=== PATIENT | male | born 1950 | race Hispanic/Latino ===

== ENCOUNTER 2023-11-17 18:05 | Emergency (ER) | payer OTHER ==
[2023-11-17 18:58] LABS: #Eosinphils 0.2 10x3/uL (0.0-0.5); #Monocytes 0.4 10x3/uL (0.0-1.1); #Neutrophils 2.5 10x3/uL (1.5-8.4); %Lymphocytes 22.3 % (18.0-47.0); %Monocytes 9.7 % (0.0-10.0); %Neutrophils 62.5 % (40.0-75.0); Hematocrit 37.1 % (38.8-50.0); Hemoglobin 13.7 g/dL (13.5-17.5); Mean Corpuscular HGB CONC 36.9 g/dL (32.0-36.0); Mean Corpuscular Hemoglobin 29.8 pg (27.0-33.0); Mean Corpuscular Volume 80.7 fl (81.2-95.1); Platelet Count 202 10x3/uL (150-450); RBC Distribution Width 12.2 % (11.5-14.5)
[2023-11-17 19:05] LABS: ALT (SGPT) 16 U/L (8-55); AST (SGOT) 14 U/L (5-34); Alkaline Phosphatase 146 U/L (40-110); Anion Gap 12 mmol/L (10-20); BUN (Urea Nitrogen) 17 mg/dL (8.4-25.7); Calc. Creatinine Clearance 0 mL/min (70-130); Calcium 8.6 mg/dL (7.8-10.44); Carbon Dioxide 20 mmol/L (23-31); Chloride 102 mmol/L (98-107); Estimated GFR 73; Globulin 2.8 g/dL (2.4-3.5); Protein, Total 6.8 g/dL (5.8-8.1); Sodium 130 mmol/L (136-145)
[2023-11-17 19:06] LABS: Glucose 561 mg/dL (83-110)
[2023-11-17] MEDS ORDERED: Insulin Regular 300 UNITS/3 ML VIAL ONE (19:40)
[2023-11-17] MEDS ORDERED: Insulin Regular 300 UNITS/3 ML VIAL IVP SCH (19:45)
== END 2023-11-17 20:40 ==
LOC: CSHERS 18:05
DX: E11.65 Type 2 diabetes mellitus with hyperglycemia (principal)
CPT/HCPCS: 36415; 36416; 80053; 82010; 85025; 96361; 96374; J1815

== ENCOUNTER 2025-04-30 20:23 | Inpatient (IN) | payer OTHER ==
[~2025-04-30 20:23] MED LIST: Iopamidol 300 61% 100 ML VIAL FS ONE
[2025-04-30 20:40] LABS: #Basophils 0.03 10x3/uL (0.0-0.2); #Eosinophils Less than 0.03 10x3/uL (0.0-0.5); #Monocytes 0.30 10x3/uL (0.0-1.1); #Neutrophils 6.19 10x3/uL (1.5-8.4); %Basophils 0.4 % (0.0-2.0); %Eosinophils 0.1 % (0.0-6.0); %Lymphocytes 7.4 % (18.0-47.0); %Monocytes 4.2 % (0.0-10.0); %Neutrophils 86.9 % (40.0-75.0); Hematocrit 26.8 % (38.8-50.0); Hemoglobin 9.6 g/dL (13.5-17.5); Mean Corpuscular Hemoglobin 30.9 pg (27.0-33.0); Mean Corpuscular Volume 86.2 fL (81.2-95.1); Platelet Count 347 10x3/uL (150-450); Red Blood Cell (RBC) Count 3.11 10x6/uL (4.32-5.72); White Blood Cell (WBC) Count 7.13 10x3/uL (3.5-10.5)
[2025-04-30 20:59] LABS: ALT (SGPT) 10 U/L (Less than 45); AST (SGOT) 21 U/L (11-34); Albumin 1.5 g/dL (3.1-4.5); Alkaline Phosphatase 95 U/L (40-110); Anion Gap 14 mmol/L (10-20); BUN (Urea Nitrogen) 26 mg/dL (8.4-25.7); Bilirubin, Total 0.3 mg/dL (0.3-1.2); Calc. Creatinine Clearance 0 mL/min (70-130); Calcium 7.1 mg/dL (7.8-10.44); Carbon Dioxide 20 mmol/L (23-31); Chloride 98 mmol/L (98-107); Globulin 3.8 g/dL (2.4-3.5); Glucose 384 mg/dL (83-110); Potassium 4.1 mmol/L (3.5-5.1); Sodium 128 mmol/L (136-145)
[2025-04-30 21:02] LABS: INR-International Normal Ratio 1.1; PTT 30.8 sec (22.0-33.0); Prothrombin Time 12.0 sec (9.5-12.1)
[2025-04-30 23:55] LABS: Glucose, Urine (Dipstick) >=1000 mg/dL (Negative); Leukocyte Negative (Negative); Protein, Urine (Dipstick) 15 mg/dl (Neg-Trace); Specific Gravity, Urine 1.020 (1.005-1.030)
[2025-05-01 00:02] LABS: Bacteria/HPF None Seen HPF (None Seen); CAUTI Indications for Culture Pelvic or flank pain; RBC/HPF 0-3 HPF (0-3); WBC/HPF 0-3 HPF (0-3)
[2025-05-01 00:03] LABS: Urine Culture Reflex No No
[2025-05-01] MEDS ORDERED: Cefepime 2 GM VIAL ONE (01:54)
[2025-05-01] MEDS ORDERED: Milk Of Magnesia 30 ML UDCUP PO PRN (04:14)
[2025-05-01] MEDS ORDERED: Calcium Carbonate 500 MG ChewTAB PO PRN (04:15)
[2025-05-01] MEDS ORDERED: Dextrose 50% Abboject 50 ML SYRINGE SLOW IVP PRN (04:28)
[2025-05-01] MEDS ORDERED: Glucagon 1 MG/ML KIT IM PRN (04:28)
[2025-05-01] MEDS: CALCIUM GLUC 1 GM/NS 50 ML 1 GM in Premix 1 BAG IVPB SCH (04:50)
[2025-05-01] MEDS: VANCOMYCIN 2 GRAM/400 ML BAG 2 GM in Premix 1 BAG IVPB SCH (05:01)
[2025-05-01 05:04] VITALS: BMI 28.3
[2025-05-01] MEDS: Levothyroxine 150 MCG TAB PO SCH (06:16)
[2025-05-01] MEDS: Bisacodyl 10 MG SUPP PR SCH (08:39)
[2025-05-01] MEDS: Thiamine 100 MG TAB PO SCH (08:49)
[2025-05-01] MEDS: Calcium Carbonate 600 MG + Vit D TAB PO SCH (08:49)
[2025-05-01] MEDS: Aspirin 81 mg Enteric Coated Tablet PO SCH (08:49)
[2025-05-01] MEDS: Senokot S 8.6-50 MG TAB PO SCH (08:49)
[2025-05-01] MEDS: Folic Acid 1 MG TAB PO SCH (08:49)
[2025-05-01] MEDS: Pantoprazole 40 MG DR.TAB PO SCH (08:49)
[2025-05-01] MEDS: Multivit, Therapeutic 1 TAB PO SCH (08:50)
[2025-05-01] MEDS: glipiZIDE 5 MG TAB PO SCH (08:50)
[2025-05-01] MEDS: Enoxaparin 40 MG (0.4 mL) SYRINGE SC SCH (08:51)
[2025-05-01] MEDS: Cyanocobalamin (Vitamin B-12) 1,000 MCG TAB PO SCH (08:54)
[2025-05-01 09:34] LABS: Anion Gap 15 mmol/L (10-20); BUN (Urea Nitrogen) 26 mg/dL (8.4-25.7); Calc. Creatinine Clearance 76 mL/min (70-130); Calcium 7.6 mg/dL (7.8-10.44); Carbon Dioxide 18 mmol/L (23-31); Chloride 102 mmol/L (98-107); Glucose 250 mg/dL (83-110); Magnesium 2.2 mg/dL (1.6-2.6); Potassium 4.3 mmol/L (3.5-5.1); Sodium 131 mmol/L (136-145)
[2025-05-01] MEDS: Nystatin Powder 15 GM BOT TOP SCH (09:48)
[2025-05-01] MEDS: Chlorhexidine Gluconate 15 ML UDCUP SSP SCH (09:49)
[2025-05-01] MEDS: Ibuprofen 200 MG TAB PO PRN (11:41)
[2025-05-01] MEDS: Acetaminophen 325 MG TAB PO PRN (11:42)
[2025-05-01 12:05] LABS: RBC Morphology Within Normal Limits
[2025-05-01 12:08] LABS: Hematocrit 32.9 % (38.8-50.0); Hemoglobin 11.3 g/dL (13.5-17.5); MDiff Complete? YES; Mean Corpuscular Hemoglobin 30.3 pg (27.0-33.0); Mean Corpuscular Volume 88.2 fL (81.2-95.1); Platelet Adequacy Comment Appears Adequate; Platelet Count 438 10x3/uL (150-450); Red Blood Cell (RBC) Count 3.73 10x6/uL (4.32-5.72); White Blood Cell (WBC) Count 8.33 10x3/uL (3.5-10.5)
[2025-05-01 14:47] VITALS: BMI 28.3
[2025-05-01] MEDS: Vancomycin 1.5 GRAM/300 ML BAG 1.5 GM in Premix 1 BAG IVPB SCH (20:24)
[2025-05-01] MEDS: Cholecalciferol 1,000 UNITS (25 MCG) TAB PO SCH (20:26)
[2025-05-02 05:44] LABS: Hematocrit 27.9 % (38.8-50.0); Hemoglobin 9.3 g/dL (13.5-17.5); Mean Corpuscular Hemoglobin 29.3 pg (27.0-33.0); Mean Corpuscular Volume 88.0 fL (81.2-95.1); Platelet Count 338 10x3/uL (150-450); Red Blood Cell (RBC) Count 3.17 10x6/uL (4.32-5.72); White Blood Cell (WBC) Count 5.91 10x3/uL (3.5-10.5)
[2025-05-02 05:46] LABS: MDiff Complete? YES; Platelet Adequacy Comment Appears Adequate; RBC Morphology Within Normal Limits
[2025-05-02 05:50] LABS: Vancomycin, Random 21.7 ug/mL (See Comment)
[2025-05-02 05:55] LABS: ALT (SGPT) 11 U/L (Less than 45); AST (SGOT) 16 U/L (11-34); Albumin 1.4 g/dL (3.1-4.5); Alkaline Phosphatase 97 U/L (40-110); Anion Gap 11 mmol/L (10-20); BUN (Urea Nitrogen) 35 mg/dL (8.4-25.7); Bilirubin, Total 0.3 mg/dL (0.3-1.2); Calc. Creatinine Clearance 63 mL/min (70-130); Carbon Dioxide 19 mmol/L (23-31); Chloride 102 mmol/L (98-107); Globulin 3.5 g/dL (2.4-3.5); Magnesium 2.2 mg/dL (1.6-2.6); Potassium 4.2 mmol/L (3.5-5.1); Sodium 128 mmol/L (136-145)
[2025-05-02 06:04] LABS: Calcium 6.7 mg/dL (7.8-10.44); Glucose 402 mg/dL (83-110)
[2025-05-02] MEDS: metFORMIN 500 MG TAB PO SCH (08:44)
[2025-05-02] MEDS: VANCOMYCIN 1.25 GM/250 ML BAG 1.25 GM in Premix 1 BAG IVPB SCH (21:28)
[2025-05-02] MEDS: Pantoprazole 40 MG VIAL IVP SCH (22:19)
[2025-05-02] MEDS: Ondansetron PF 4 MG/2 ML Vial IVP PRN (22:19)
[2025-05-03 06:29] LABS: Anion Gap 14 mmol/L (10-20); BUN (Urea Nitrogen) 41 mg/dL (8.4-25.7); Calc. Creatinine Clearance 65 mL/min (70-130); Calcium 7.1 mg/dL (7.8-10.44); Carbon Dioxide 16 mmol/L (23-31); Chloride 104 mmol/L (98-107); Glucose 233 mg/dL (83-110); Potassium 4.2 mmol/L (3.5-5.1); Sodium 130 mmol/L (136-145)
[2025-05-04 06:18] LABS: #Basophils 0.03 10x3/uL (0.0-0.2); #Eosinophils 0.13 10x3/uL (0.0-0.5); #Monocytes 0.36 10x3/uL (0.0-1.1); #Neutrophils 6.84 10x3/uL (1.5-8.4); %Basophils 0.4 % (0.0-2.0); %Eosinophils 1.6 % (0.0-6.0); %Lymphocytes 11.2 % (18.0-47.0); %Monocytes 4.3 % (0.0-10.0); %Neutrophils 82.0 % (40.0-75.0); Hematocrit 27.9 % (38.8-50.0); Hemoglobin 9.5 g/dL (13.5-17.5); Mean Corpuscular Hemoglobin 30.0 pg (27.0-33.0); Mean Corpuscular Volume 88.0 fL (81.2-95.1); Platelet Count 352 10x3/uL (150-450); Red Blood Cell (RBC) Count 3.17 10x6/uL (4.32-5.72); White Blood Cell (WBC) Count 8.33 10x3/uL (3.5-10.5)
[2025-05-04 06:38] LABS: Vancomycin, Random 21.9 ug/mL (See Comment)
[2025-05-04 06:43] LABS: ALT (SGPT) 12 U/L (Less than 45); AST (SGOT) 25 U/L (11-34); Albumin 1.4 g/dL (3.1-4.5); Alkaline Phosphatase 79 U/L (40-110); Anion Gap 13 mmol/L (10-20); BUN (Urea Nitrogen) 36 mg/dL (8.4-25.7); Bilirubin, Total 0.3 mg/dL (0.3-1.2); Calc. Creatinine Clearance 82 mL/min (70-130); Calcium 7.3 mg/dL (7.8-10.44); Carbon Dioxide 15 mmol/L (23-31); Chloride 105 mmol/L (98-107); Globulin 4.1 g/dL (2.4-3.5); Glucose 220 mg/dL (83-110); Potassium 4.2 mmol/L (3.5-5.1); Sodium 129 mmol/L (136-145)
[2025-05-04] MEDS ORDERED: Ondansetron PF 4 MG/2 ML Vial IVP PRN (18:36)
[2025-05-04] MEDS ORDERED: Nitroglycerin 0.4 MG TAB (25 Tab Bottle) SL PRN (20:05)
[2025-05-04 21:11] LABS: Troponin I 0.531 ng/mL (< 0.028)
[2025-05-04] MEDS: Vancomycin 1.5 GRAM/300 ML BAG 1.5 GM in Premix 1 BAG IVPB SCH (22:23)
[2025-05-04] MEDS: Aspirin 325 MG TAB PO SCH (22:24)
[2025-05-05 01:41] LABS: Troponin I 0.521 ng/mL (< 0.028)
[2025-05-05 04:14] LABS: #Basophils 0.05 10x3/uL (0.0-0.2); #Eosinophils 0.15 10x3/uL (0.0-0.5); #Monocytes 0.25 10x3/uL (0.0-1.1); #Neutrophils 5.58 10x3/uL (1.5-8.4); %Basophils 0.7 % (0.0-2.0); %Eosinophils 2.1 % (0.0-6.0); %Lymphocytes 13.8 % (18.0-47.0); %Monocytes 3.6 % (0.0-10.0); %Neutrophils 79.5 % (40.0-75.0); Hematocrit 26.6 % (38.8-50.0); Hemoglobin 9.2 g/dL (13.5-17.5); Mean Corpuscular Hemoglobin 30.3 pg (27.0-33.0); Mean Corpuscular Volume 87.5 fL (81.2-95.1); Platelet Count 353 10x3/uL (150-450); Red Blood Cell (RBC) Count 3.04 10x6/uL (4.32-5.72); White Blood Cell (WBC) Count 7.02 10x3/uL (3.5-10.5)
[2025-05-05 04:45] LABS: ALT (SGPT) 15 U/L (Less than 45); AST (SGOT) 30 U/L (11-34); Albumin 1.4 g/dL (3.1-4.5); Alkaline Phosphatase 92 U/L (40-110); Anion Gap 14 mmol/L (10-20); BUN (Urea Nitrogen) 34 mg/dL (8.4-25.7); Bilirubin, Total 0.2 mg/dL (0.3-1.2); Calc. Creatinine Clearance 95 mL/min (70-130); Calcium 7.4 mg/dL (7.8-10.44); Carbon Dioxide 16 mmol/L (23-31); Chloride 105 mmol/L (98-107); Globulin 4.3 g/dL (2.4-3.5); Glucose 219 mg/dL (83-110); Potassium 4.7 mmol/L (3.5-5.1); Sodium 130 mmol/L (136-145)
[2025-05-05 05:04] LABS: Troponin I 0.460 ng/mL (< 0.028)
[2025-05-05] MEDS: Ibuprofen 200 MG TAB PO PRN (09:25)
[2025-05-05] MEDS: Ondansetron PF 4 MG/2 ML Vial IVP SCH (09:26)
[2025-05-05] MEDS: Furosemide 40 MG (4 mL) VIAL SLOW IVP SCH (13:55)
[2025-05-05] MEDS: VANCOMYCIN 1.25 GM/250 ML BAG 1.25 GM in Premix 1 BAG IVPB SCH (15:55)
[2025-05-05] MEDS: Carvedilol 3.125 MG TAB PO SCH (15:56)
[2025-05-05] MEDS: Sacubitril 24MG/Valsartan 26 MG TAB PO SCH (21:26)
[2025-05-06 04:36] LABS: #Basophils 0.04 10x3/uL (0.0-0.2); #Eosinophils 0.14 10x3/uL (0.0-0.5); #Monocytes 0.41 10x3/uL (0.0-1.1); #Neutrophils 7.96 10x3/uL (1.5-8.4); %Basophils 0.4 % (0.0-2.0); %Eosinophils 1.5 % (0.0-6.0); %Lymphocytes 9.6 % (18.0-47.0); %Monocytes 4.3 % (0.0-10.0); %Neutrophils 83.9 % (40.0-75.0); Hematocrit 27.9 % (38.8-50.0); Hemoglobin 9.6 g/dL (13.5-17.5); Mean Corpuscular Hemoglobin 29.9 pg (27.0-33.0); Mean Corpuscular Volume 86.9 fL (81.2-95.1); Platelet Count 401 10x3/uL (150-450); Red Blood Cell (RBC) Count 3.21 10x6/uL (4.32-5.72); White Blood Cell (WBC) Count 9.49 10x3/uL (3.5-10.5)
[2025-05-06 04:52] LABS: Vancomycin, Random 20.2 ug/mL (See Comment)
[2025-05-06 05:01] LABS: ALT (SGPT) 24 U/L (Less than 45); AST (SGOT) 41 U/L (11-34); Albumin 1.6 g/dL (3.1-4.5); Alkaline Phosphatase 103 U/L (40-110); Anion Gap 16 mmol/L (10-20); BUN (Urea Nitrogen) 29 mg/dL (8.4-25.7); Bilirubin, Total 0.3 mg/dL (0.3-1.2); Calc. Creatinine Clearance 92 mL/min (70-130); Calcium 7.6 mg/dL (7.8-10.44); Carbon Dioxide 16 mmol/L (23-31); Chloride 104 mmol/L (98-107); Globulin 4.4 g/dL (2.4-3.5); Glucose 217 mg/dL (83-110); Potassium 4.7 mmol/L (3.5-5.1); Sodium 131 mmol/L (136-145)
[2025-05-06] MEDS: Albumin 25% 25 GM (100 mL) BOT IVPB SCH (10:27)
[2025-05-06] MEDS: VANCOMYCIN 1.25 GM/250 ML BAG 1.25 GM in Premix 1 BAG IVPB SCH (17:51)
[2025-05-06] MEDS: Lantus 1000 UNITS/10 ML VIAL SC SCH (22:21)
[2025-05-07 04:16] LABS: #Basophils 0.07 10x3/uL (0.0-0.2); #Eosinophils 0.15 10x3/uL (0.0-0.5); #Monocytes 0.45 10x3/uL (0.0-1.1); #Neutrophils 6.33 10x3/uL (1.5-8.4); %Basophils 0.9 % (0.0-2.0); %Eosinophils 1.8 % (0.0-6.0); %Lymphocytes 14.5 % (18.0-47.0); %Monocytes 5.5 % (0.0-10.0); %Neutrophils 76.8 % (40.0-75.0); Hematocrit 29.4 % (38.8-50.0); Hemoglobin 9.9 g/dL (13.5-17.5); Mean Corpuscular Hemoglobin 29.6 pg (27.0-33.0); Mean Corpuscular Volume 87.8 fL (81.2-95.1); Platelet Count 436 10x3/uL (150-450); Red Blood Cell (RBC) Count 3.35 10x6/uL (4.32-5.72); White Blood Cell (WBC) Count 8.23 10x3/uL (3.5-10.5)
[2025-05-07 04:32] LABS: ALT (SGPT) 28 U/L (Less than 45); AST (SGOT) 35 U/L (11-34); Albumin 1.9 g/dL (3.1-4.5); Alkaline Phosphatase 105 U/L (40-110); Anion Gap 16 mmol/L (10-20); BUN (Urea Nitrogen) 27 mg/dL (8.4-25.7); Bilirubin, Total 0.3 mg/dL (0.3-1.2); Calc. Creatinine Clearance 75 mL/min (70-130); Calcium 7.8 mg/dL (7.8-10.44); Carbon Dioxide 17 mmol/L (23-31); Chloride 103 mmol/L (98-107); Globulin 4.2 g/dL (2.4-3.5); Glucose 278 mg/dL (83-110); Potassium 4.5 mmol/L (3.5-5.1); Sodium 131 mmol/L (136-145)
[2025-05-07] MEDS ORDERED: Communication Order-Pharmacy FS SCH (10:15)
[2025-05-07] MEDS: Albumin 25% 25 GM (100 mL) BOT IVPB SCH (11:47)
[2025-05-07] MEDS: Lantus 1000 UNITS/10 ML VIAL SC SCH ×2 (12:38→20:45)
[2025-05-07] MEDS: Carvedilol 6.25 MG TAB PO SCH (16:52)
[2025-05-08 04:09] LABS: #Basophils 0.08 10x3/uL (0.0-0.2); #Eosinophils 0.20 10x3/uL (0.0-0.5); #Monocytes 0.55 10x3/uL (0.0-1.1); #Neutrophils 7.94 10x3/uL (1.5-8.4); %Basophils 0.8 % (0.0-2.0); %Eosinophils 2.0 % (0.0-6.0); %Lymphocytes 11.6 % (18.0-47.0); %Monocytes 5.5 % (0.0-10.0); %Neutrophils 79.6 % (40.0-75.0); Hematocrit 28.3 % (38.8-50.0); Hemoglobin 9.5 g/dL (13.5-17.5); Mean Corpuscular Hemoglobin 29.2 pg (27.0-33.0); Mean Corpuscular Volume 87.1 fL (81.2-95.1); Platelet Count 513 10x3/uL (150-450); Red Blood Cell (RBC) Count 3.25 10x6/uL (4.32-5.72); White Blood Cell (WBC) Count 9.98 10x3/uL (3.5-10.5)
[2025-05-08 04:22] LABS: Vancomycin, Random 19.3 ug/mL (See Comment)
[2025-05-08 04:27] LABS: ALT (SGPT) 21 U/L (Less than 45); AST (SGOT) 26 U/L (11-34); Albumin 2.1 g/dL (3.1-4.5); Alkaline Phosphatase 110 U/L (40-110); Anion Gap 12 mmol/L (10-20); BUN (Urea Nitrogen) 28 mg/dL (8.4-25.7); Bilirubin, Total 0.3 mg/dL (0.3-1.2); Calc. Creatinine Clearance 86 mL/min (70-130); Calcium 7.8 mg/dL (7.8-10.44); Carbon Dioxide 22 mmol/L (23-31); Chloride 102 mmol/L (98-107); Globulin 4.0 g/dL (2.4-3.5); Glucose 261 mg/dL (83-110); Potassium 4.7 mmol/L (3.5-5.1); Sodium 131 mmol/L (136-145)
[2025-05-08 04:41] LABS: INR-International Normal Ratio 1.0; PTT 30.2 sec (22.0-33.0); Prothrombin Time 11.3 sec (9.5-12.1)
[2025-05-08] MEDS ORDERED: Lidocaine 1% (PF) 30 ML VIAL ONE (11:13)
[2025-05-08] MEDS ORDERED: Nitroglycerin 50 MG/250 ML BOT 0 ML ONE (11:13)
[2025-05-08] MEDS ORDERED: Heparin 10,000 UNITS/ 10 ML VIAL ONE (11:14)
[2025-05-08] MEDS ORDERED: Adenosine 6 mg (2 mL) VIAL ONE (11:14)
[2025-05-08] MEDS ORDERED: Iopamidol 300 61% 100 ML VIAL FS ONE (11:50)
[2025-05-08 16:56] VITALS: BP 113/56; TEMP 98.7
[2025-05-08] MEDS: Vancomycin 1.5 GRAM/300 ML BAG 1.5 GM in Premix 1 BAG IVPB SCH (17:06)
== END 2025-05-08 19:55 | disposition short-term general hospital (02) | DRG 280 ==
LOC: CSHERS 20:23 → EEVIPCON 20:23 → CSHTELE 05-01 03:24
PROVIDERS: ADMIT Internal Medicine; ATTEND Internal Medicine
PROC: 4A023N7 Measurement of Cardiac Sampling and Pressure, Left Heart, Percutaneous Approach (ICD-10-PCS; principal; 2025-05-08)
PROC: B2151ZZ Fluoroscopy of Left Heart using Low Osmolar Contrast (ICD-10-PCS; 2025-05-08)
PROC: B2111ZZ Fluoroscopy of Multiple Coronary Arteries using Low Osmolar Contrast (ICD-10-PCS; 2025-05-08)
DX: I11.0 Hypertensive heart disease with heart failure (principal); I50.23 Acute on chronic systolic (congestive) heart failure; I21.A1 Myocardial infarction type 2; L03.116 Cellulitis of left lower limb; E87.1 Hypo-osmolality and hyponatremia; I25.10 Atherosclerotic heart disease of native coronary artery without angina pectoris; E11.65 Type 2 diabetes mellitus with hyperglycemia; Z88.2 Allergy status to sulfonamides; Z88.1 Allergy status to other antibiotic agents; Z79.82 Long term (current) use of aspirin; I25.5 Ischemic cardiomyopathy
CPT/HCPCS: 36415; 36416; 71045; 74160; 80048; 80053; 80202; 81001; 83036; 83605; 83735; 83880; 84100; 84484; 85025; 85610; 85730; 86140; 87081; 93005; 93010; 93306; 93459; 94760; 94762; 96374; 97139; 99152; C1760; C1769; C1887; C1894; J0153; J0613; J0692; J1644; J1650; J1815; J1940; J2250; J2405; J2470; J3010; J3373; J3375; J7030; P9047; Q9967